=== PATIENT | male | born 1965 | race African-American/Black ===

== ENCOUNTER 2016-08-25 14:20 | Emergency (ER) | payer MEDICAID ==
[~2016-08-25] VITALS: Ht 175.3 cm; Wt 122.0 kg
[2016-08-25] MEDS ORDERED: ONDANSETRON HCL 4MG/2ML VIAL IV ONE (16:00)
[2016-08-25] MEDS ORDERED: MORPHINE SULFATE 4 MG/ML CPJ (NOT FOR IM USE) IV ONE (16:00)
[2016-08-25] MEDS ORDERED: SODIUM CHLORIDE 0.9% 1,000 ML IV ONE (16:00)
[2016-08-25 16:28] LABS: ANION GAP 18; CALCIUM 8.4 mg/dL (8.5-10.1); CARBON DIOXIDE 22 mEq/L (21-32); CHLORIDE 107 mEq/L (98-107); ETHANOL BLOOD 287 mg/dL; INDEX HEMOLYSI 1 (1-3); INDEX ICTERIC 1 (1-4); INDEX LIPEMIC 1 (1-3); TROPONIN I < 0.02 ng/mL (0.00-0.04); UREA NITROGEN BLOOD 16 mg/dL (7-21); eGFR > 60 mL/min (>60)
[2016-08-25 22:03] VITALS: BP 124/71
== END 2016-08-25 22:05 | disposition home or self-care (01) ==
LOC: ER 15:01
DX: F10.229 Alcohol dependence with intoxication, unspecified (principal); R00.0 Tachycardia, unspecified; R07.89 Other chest pain; I10 Essential (primary) hypertension; E11.9 Type 2 diabetes mellitus without complications; E78.00 Pure hypercholesterolemia, unspecified; Y90.8 Blood alcohol level of 240 mg/100 ml or more
CPT/HCPCS: 36415; 80048; 84484; 93005; 96361; 96374; 96375; 99285; G0482; J2270; J2405; J7030; Z7610

== ENCOUNTER 2017-04-06 10:43 | Inpatient (IN) | payer MEDICAID ==
[~2017-04-06] VITALS: Ht 175.3 cm; Wt 117.9 kg
[2017-04-06 14:29] VITALS: BP 127/73
[2017-04-06 16:00] VITALS: BP 127/73
[2017-04-06] MEDS ORDERED: *ZOSYN XX SCH (16:45)
[2017-04-06] MEDS ORDERED: ONDANSETRON HCL 4MG/2ML VIAL IV PRN (16:45)
[2017-04-06] MEDS: KETOROLAC 30MG/ML VIAL IV PRN ×2 (17:31→23:45)
[2017-04-06] MEDS ORDERED: PIPERACILLIN/TAZ 3.375G PREMIX 50 ML IV NR (18:00)
[2017-04-06 18:50] LABS: BASOPHILS % 0.3 % (0.0-2.0); EOSINOPHILS % 0.9 % (0.0-5.0); HEMATOCRIT. 33.4 % (42.0-52.0); HEMOGLOBIN. 11.3 g/dL (14.0-18.0); LYMPHOCYTES % 10.8 % (20.0-50.0); MEAN CORPUSCULAR HEMOGLOBIN 28.5 pg (28.0-32.0); MEAN CORPUSCULAR VOLUME 84.1 fL (80.0-94.0); MEAN PLATELET VOLUME 7.7 fl (7.4-10.4); PLATELET 508 x1000/uL (130-400); RED BLOOD CELL COUNT 3.97 mill/uL (4.7-6.1); RED CELL DISTRIBUTION WIDTH 16.6 % (11.6-14.6)
[2017-04-06] MEDS: SODIUM CHLORIDE 0.9% 1,000 ML IV SCH (18:54)
[2017-04-06 19:01] LABS: CARBON DIOXIDE 24 mEq/L (21-32); CHLORIDE 100 mEq/L (98-107)
[2017-04-06 20:00] VITALS: BP 110/71
[2017-04-06] MEDS: PIPERACILLIN/TAZ 3.375G PREMIX 50 ML IV SCH (23:30)
[2017-04-06 23:42] VITALS: BP 114/89
[2017-04-07] MEDS ORDERED: DIATR MEGLU/DIATRIZOATE SOLN 30ML PO SCH (00:15)
[2017-04-07 04:00] VITALS: BP 107/69
[2017-04-07] MEDS: PIPERACILLIN/TAZ 3.375G PREMIX 50 ML IV SCH ×3 (06:01→17:24)
[2017-04-07] MEDS: SODIUM CHLORIDE 0.9% 1,000 ML IV SCH ×2 (06:08→18:07)
[2017-04-07 08:00] VITALS: BP 116/67
[2017-04-07] MEDS: KETOROLAC 30MG/ML VIAL IV PRN ×3 (08:22→18:07)
[2017-04-07 12:00] VITALS: BP 105/66
[2017-04-07 16:00] VITALS: BP 106/68
[2017-04-07 20:00] VITALS: BP 113/71
[2017-04-07] MEDS: MORPHINE SULFATE 4 MG/ML CPJ (NOT FOR IM USE) IV PRN (21:56)
[2017-04-08] VITALS: BP 111/68
[2017-04-08] MEDS: PIPERACILLIN/TAZ 3.375G PREMIX 50 ML IV SCH ×3 (01:17→11:49)
[2017-04-08] MEDS: MORPHINE SULFATE 4 MG/ML CPJ (NOT FOR IM USE) IV PRN ×3 (02:03→10:38)
[2017-04-08 04:00] VITALS: BP 111/67
[2017-04-08 06:00] LABS: BASOPHILS % 0.6 % (0.0-2.0); EOSINOPHILS % 4.4 % (0.0-5.0); HEMATOCRIT. 28.7 % (42.0-52.0); HEMOGLOBIN. 9.8 g/dL (14.0-18.0); LYMPHOCYTES % 20.6 % (20.0-50.0); MEAN CORPUSCULAR HEMOGLOBIN 28.6 pg (28.0-32.0); MEAN CORPUSCULAR VOLUME 84.2 fL (80.0-94.0); MEAN PLATELET VOLUME 8.2 fl (7.4-10.4); MONOCYTES % 10.2 % (2.0-8.0); NEUTROPHILS % 64.2 % (40.0-76.0); PLATELET 398 x1000/uL (130-400); RED BLOOD CELL COUNT 3.42 mill/uL (4.7-6.1); RED CELL DISTRIBUTION WIDTH 16.4 % (11.6-14.6)
[2017-04-08 06:20] LABS: CHLORIDE 98 mEq/L (98-107)
[2017-04-08 06:27] LABS: CARBON DIOXIDE 27 mEq/L (21-32)
[2017-04-08 08:00] VITALS: BP 125/81
[2017-04-08] MEDS: SODIUM CHLORIDE 0.9% 1,000 ML IV SCH (08:11)
[2017-04-08] MEDS ORDERED: POTASSIUM CHLORIDE 20MEQ TABLET SR PO NR (11:30)
[2017-04-08 12:00] VITALS: BP 105/66
[2017-04-08 15:36] VITALS: BP 105/66
== END 2017-04-08 17:30 | disposition home or self-care (01) | DRG 248 ==
LOC: 8WST 13:54
PROVIDERS: ADMIT Internal Medicine; ATTEND Internal Medicine
DX: K65.1 Peritoneal abscess (principal); R65.10 Systemic inflammatory response syndrome (SIRS) of non-infectious origin without acute organ dysfunction; I10 Essential (primary) hypertension; J98.11 Atelectasis; K57.90 Diverticulosis of intestine, part unspecified, without perforation or abscess without bleeding; N20.0 Calculus of kidney; Z93.3 Colostomy status
CPT/HCPCS: 36415; 74000; 74176; 80048; 82962; 85025; 87040; 93970; J1885; J2270; J2405; J2543; J7030; Q9963

== ENCOUNTER 2019-07-11 21:51 | Inpatient (IN) | payer MEDICAID ==
[~2019-07-11] VITALS: Ht 175.3 cm; Wt 112.0 kg
[2019-07-11] MEDS ORDERED: VISCOUS LIDOCAINE 2% 15 ML UDC PO ONE (22:15)
[2019-07-11] MEDS ORDERED: MAGNESIUM/ALUMINUM HYDROXIDE/SIMETHICONE 30ML UDC PO ONE (22:15)
[2019-07-11] MEDS ORDERED: ASPIRIN 81MG TABLET PO ONE (22:15)
[2019-07-11 23:35] LABS: BASOPHILS % 0.8 % (0.0-2.0); EOSINOPHILS % 3.2 % (0.0-5.0); HEMATOCRIT. 45.3 % (42.0-52.0); LYMPHOCYTES % 49.7 % (20.0-50.0); MEAN CORPUSCULAR HEMOGLOBIN 31.1 pg (28.0-32.0); MEAN CORPUSCULAR VOLUME 93.8 fL (80.0-94.0); MEAN PLATELET VOLUME 8.6 fl (7.4-10.4); MONOCYTES % 9.3 % (2.0-8.0); PLATELET 417 x1000/uL (130-400); RED BLOOD CELL COUNT 4.83 mill/uL (4.7-6.1); RED CELL DISTRIBUTION WIDTH 16.2 % (11.6-14.6)
[2019-07-11 23:42] LABS: CHLORIDE 109 mEq/L (98-107)
[2019-07-11] MEDS ORDERED: KETOROLAC 30MG/ML VIAL IV NR (23:45)
[2019-07-11] MEDS ORDERED: NITROGLYCERIN 0.4MG TABLET SL SL ONE (23:45)
[2019-07-12 04:44] LABS: *AMPHETAMINES SCREEN URINE NEGATIVE (NEGATIVE); CANNABINOID URINE SCREEN NEGATIVE (NEGATIVE); OPIATES URINE SCREEN NEGATIVE (NEGATIVE); PHENCYCLIDINE URINE SCREEN NEGATIVE (NEGATIVE)
[2019-07-12 04:45] LABS: *BARBITURATES SCREEN URINE NEGATIVE (NEGATIVE); *BENZODIAZEPINES SCREEN URINE NEGATIVE (NEGATIVE); *COCAINE SCREEN URINE NEGATIVE (NEGATIVE); METHADONE URINE SCREEN NEGATIVE (NEGATIVE)
[2019-07-12] MEDS: MORPHINE SULFATE 2 MG/ML CPJ (NOT FOR IM USE) IV PRN (10:08)
[2019-07-12 12:11] VITALS: BP 131/80
[2019-07-12 12:30] VITALS: BP 131/80
[2019-07-12] MEDS ORDERED: DOCUSATE SODIUM 100MG CAPSULE PO PRN ×2 (13:00→19:45)
[2019-07-12] MEDS ORDERED: CLONIDINE 0.1MG TABLET PO PRN ×2 (13:00→19:45)
[2019-07-12] MEDS ORDERED: GUAIFENESIN 200MG/10ML SUGAR FREE UDC PO PRN ×2 (13:00→19:45)
[2019-07-12] MEDS ORDERED: ONDANSETRON HCL 4MG/2ML INJ IV PRN ×2 (13:00→19:45)
[2019-07-12] MEDS ORDERED: NITROGLYCERIN 0.4MG TABLET SL SL PRN (13:00)
[2019-07-12] MEDS ORDERED: IPRATROPIUM/ALBUTEROL 0.5-3(2.5)MG/3ML NEB HHN PRN ×2 (13:00→19:45)
[2019-07-12] MEDS ORDERED: ACETAMINOPHEN 325MG TABLET PO PRN ×2 (13:00→19:45)
[2019-07-12] MEDS ORDERED: LORAZEPAM 0.5MG TABLET PO PRN ×2 (13:00→19:45)
[2019-07-12] MEDS: HYDROCODONE/ACETAMINOPHEN 5/325MG TABLET PO PRN ×2 (13:10→21:17)
[2019-07-12] MEDS ORDERED: FOLI-43 PO (13:21)
[2019-07-12] MEDS ORDERED: SITA1TAB6 PO (13:21)
[2019-07-12] MEDS ORDERED: THIA100T72 PO (13:21)
[2019-07-12] MEDS ORDERED: ASPI-1158 PO (13:21)
[2019-07-12] MEDS ORDERED: LISI10TA5 PO (13:21)
[2019-07-12 16:00] VITALS: BP 110/62
[2019-07-12] MEDS ORDERED: MORPHINE SULFATE 2 MG/ML CPJ (NOT FOR IM USE) IV PRN (19:45)
[2019-07-12] MEDS ORDERED: HYDROCODONE/ACETAMINOPHEN 5/325MG TABLET PO PRN (19:45)
[2019-07-12 20:00] VITALS: BP 133/71
[2019-07-12] MEDS ORDERED: DEXTROSE 50% WATER 50ML SYRINGE IV PRN (20:30)
[2019-07-12] MEDS: PANTOPRAZOLE 40MG DR TABLET PO SCH (20:42)
[2019-07-12] MEDS: BLOOD SUGAR DIAGNOSTIC STRIP TEST SCH (20:43)
[2019-07-12] MEDS: INSULIN LISPRO 100 UNITS/ML SUBCUT SCH (20:49)
[2019-07-12] MEDS: SUCRALFATE 1 G/10 ML UDC PO SCH (22:15)
[2019-07-13] VITALS: BP 128/71
[2019-07-13 04:00] VITALS: BP 115/74
[2019-07-13] MEDS: SUCRALFATE 1 G/10 ML UDC PO SCH ×3 (06:25→16:55)
[2019-07-13] MEDS: PANTOPRAZOLE 40MG DR TABLET PO SCH (06:25)
[2019-07-13] MEDS: BLOOD SUGAR DIAGNOSTIC STRIP TEST SCH ×3 (06:25→16:58)
[2019-07-13] MEDS: INSULIN LISPRO 100 UNITS/ML SUBCUT SCH ×3 (06:31→17:01)
[2019-07-13 06:55] LABS: CHLORIDE 101 mEq/L (98-107)
[2019-07-13 07:02] LABS: LDL CHOLESTEROL 60 mg/dL (5-100)
[2019-07-13 07:03] LABS: HDL CHOLESTEROL 66 mg/dL (40-59)
[2019-07-13 07:33] LABS: BASOPHILS % 0.8 % (0.0-2.0); EOSINOPHILS % 1.4 % (0.0-5.0); HEMATOCRIT. 38.1 % (42.0-52.0); HEMOGLOBIN. 12.7 g/dL (14.0-18.0); LYMPHOCYTES % 35.3 % (20.0-50.0); MEAN CORPUSCULAR HEMOGLOBIN 31.2 pg (28.0-32.0); MEAN CORPUSCULAR VOLUME 93.2 fL (80.0-94.0); MEAN PLATELET VOLUME 8.5 fl (7.4-10.4); MONOCYTES % 12.2 % (2.0-8.0); NEUTROPHILS % 50.3 % (40.0-76.0); PLATELET 320 x1000/uL (130-400); RED BLOOD CELL COUNT 4.09 mill/uL (4.7-6.1); RED CELL DISTRIBUTION WIDTH 15.7 % (11.6-14.6)
[2019-07-13 08:00] VITALS: BP 114/70
[2019-07-13] MEDS ORDERED: INFLUENZA VIRUS VACCINE(AFLURIA) 0.5ML SYR IM ONE (08:00)
[2019-07-13] MEDS ORDERED: PNEUMOCOCCAL 23-VAL P-SAC VAC 0.5 ML IM ONE (08:00)
[2019-07-13] MEDS ORDERED: REGADENOSON 0.4 MG/5 ML IV NR (09:30)
[2019-07-13 10:33] LABS: T4 FREE 0.86 ng/dL (0.76-1.46)
[2019-07-13] MEDS ORDERED: REGADENOSON 0.4 MG/5 ML IV ONE (11:54)
[2019-07-13 16:00] VITALS: BP 123/77
[2019-07-13 16:41] LABS: CREATINE KINASE MB FRACTION < 1.0 ng/mL (0.5-3.6)
[2019-07-13 16:42] LABS: CREATINE KINASE 72 IU/L (39-308)
[2019-07-13] MEDS: MORPHINE SULFATE 2 MG/ML CPJ (NOT FOR IM USE) IV PRN (16:57)
[2019-07-13] MEDS ORDERED: ATOR20TA65 MT (17:08)
[2019-07-13] MEDS ORDERED: PANT40TA4 MT (17:11)
[2019-07-13 17:28] VITALS: BP 123/77
== END 2019-07-13 18:45 | disposition home or self-care (01) | DRG 203 ==
LOC: ER 21:51 → 5WST 07-12 01:17 → EDBEDREQTM 07-12 01:19 → EDBEDREQ 07-12 01:19 → ENRESERV 07-12 10:09
PROVIDERS: ADMIT Internal Medicine; ATTEND Internal Medicine
DX: M94.0 Chondrocostal junction syndrome [Tietze] (principal); E11.22 Type 2 diabetes mellitus with diabetic chronic kidney disease; I12.9 Hypertensive chronic kidney disease with stage 1 through stage 4 chronic kidney disease, or unspecified chronic kidney disease; N18.9 Chronic kidney disease, unspecified; D72.821 Monocytosis (symptomatic); E78.5 Hyperlipidemia, unspecified; E53.8 Deficiency of other specified B group vitamins; Z79.84 Long term (current) use of oral hypoglycemic drugs; Z79.899 Other long term (current) drug therapy; Z79.82 Long term (current) use of aspirin
CPT/HCPCS: 36415; 70551; 71045; 78452; 80048; 80053; 80061; 80305; 80320; 82550; 82553; 82962; 83036; 83880; 84439; 84443; 84484; 85025; 85379; 90686; 90732; 93005; 93017; 99285; A9500; J1815; J1885; J2270; J2405; J2785; G0480